=== PATIENT | male | born 1970 | race African-American/Black ===

== ENCOUNTER 2018-05-30 09:08 | Emergency (ER) | payer BC ==
[~2018-05-30] VITALS: Ht 185.4 cm; Wt 99.8 kg
[2018-05-30 09:13] VITALS: BP 142/91
[2018-05-30] MEDS ORDERED: PRED50TA PO (09:28)
[2018-05-30] MEDS ORDERED: DIPH25CA58 PO (09:28)
[2018-05-30] MEDS ORDERED: EPIPEN 2-P0.3 MG/0.3 IJ (09:28)
[2018-05-30] MEDS ORDERED: predniSONE 10 MG TABLET PO ONE (09:30)
[2018-05-30] MEDS ORDERED: diphenhydrAMINE HCL 25 MG CAPSULE PO ONE (09:30)
--- NOTE | 2018-05-30 09:36 | PHYS DOC ---
Adult General Chief Complaint Chief Complaint: ALLERGIC REACTION HPI HPI No other exacerbating or alleviating factors has not tried anything for relief Patient is a 48 year old Female presenting with rash and lip swelling occurred since last night no known trigger patient has a history of hypertension on lisinopril for the last 5 years also hydrochlorothiazide and metformin no recent new foods no exposures no new detergents no recent fever no shortness of breath no sore throat no pain Review of Systems Review of Systems Constitutional: Denies fever or chills [] Eyes: Denies change in visual acuity, redness, or eye pain [] Cardiovascular: No additional information not addressed in HPI [] Musculoskeletal: Denies back pain or joint pain [] Integument: All other systems were reviewed and found to be within normal limits, except as documented in this note. Current Medications Current Medications Current Medications Medications (Trade) Dose Ordered Sig/Tirso Start Time Stop Time Status Last Admin Dose Admin Diphenhydramine HCl (Benadryl) 50 mg 1X ONCE 05/30/18 09:30 05/30/18 09:31 Prednisone (Prednisone) 50 mg 1X ONCE 05/30/18 09:30 05/30/18 09:31 Allergies Allergies Allergies Coded Allergies Type Severity Reaction Last Updated Verified No Known Drug Allergies 05/30/18 No Physical Exam Physical Exam Constitutional: Well developed, well nourished, no acute distress, non-toxic appearance. [] HENT: Normocephalic, atraumatic, bilateral external ears normal, oropharynx moist, there is swelling noted to the right lower lip no segmental distribution is not the entire lip and tongue and posterior oropharynx are normal no stridor patient has no respiratory symptoms he says swallowing normally Eyes: PERRLA, EOMI, conjunctiva normal, no discharge. [] Neck: Normal range of motion, no tenderness, supple, no stridor. [] Cardiovascular:Heart rate regular rhythm, no murmur [] Lungs & Thorax: Bilateral breath sounds clear to auscultation []no wheezing Abdomen: Bowel sounds normal, soft, no tenderness, no masses, no pulsatile masses. [] Skin: Urticaria noted bilateral extremities also some swelling of the left hand Back: No tenderness, no CVA tenderness. [] Extremities: No tenderness, no cyanosis, no clubbing, ROM intact, no edema. [] Neurologic: Alert and oriented X 3, normal motor function, normal sensory function, no focal deficits noted. [] Psychologic: Affect normal, judgement normal, mood normal. [] EKG EKG [] Radiology/Procedures Radiology/Procedures [] Course & Med Decision Making Course & Med Decision Making Pertinent Labs and Imaging studies reviewed. (See chart for details) []Urticaria with some segmental swelling of the right lower lip no posterior oral pharyngeal swelling airways patent tachycardic lungs clear patient is stable appearing. Differential would include lisinopril-induced edema versus hives of unknown etiology. In presence of a significant urticaria seems to argue against lisinopril-induced angioedema but is possible patient was advised to stop lisinopril take prednisone and Benadryl he was given an EpiPen prescription out of an abundance of caution and instructed on how to use it strict return precautions were advised. Patient was able take oral pills in the emergency room without difficulty Dragon Disclaimer Dragon Disclaimer This electronic medical record was generated, in whole or in part, using a voice recognition dictation system. Departure Departure Impression: Primary Impression: Allergic reaction Disposition: HOME, SELF-CARE Condition: STABLE Patient Instructions: Hives Scripts Diphenhydramine Hcl (BENADRYL) 25 Mg Capsule 1 CAP PO QHS, #30 CAP 1 Refill Prov: CORY SEBASTIAN MD 05/30/18 Epinephrine (EPIPEN 2-MELA) 0.3 Mg/0.3 Ml Auto.injct 0.3 MG IJ 1X PRN for ANAPHYLAXIS, #1 SYR Prov: CORY SEBASTIAN MD 05/30/18 Prednisone (PREDNISONE) 50 Mg Tablet 1 TAB PO DAILY, #5 TAB Prov: CORY SEBASTIAN MD 05/30/18 CORY SEBASTIAN MD May 30, 2018 09:36
[2018-05-31] MEDS ORDERED: FAMO20TA5 PO (20:22)
== END 2018-05-30 09:54 | disposition home or self-care (01) ==
LOC: ER 09:08
DX: L50.0 Allergic urticaria (principal); R00.0 Tachycardia, unspecified; I10 Essential (primary) hypertension
CPT/HCPCS: 99283; J7512; Q0163

== ENCOUNTER 2018-05-31 18:29 | Emergency (ER) | payer BC ==
[~2018-05-31] VITALS: Ht 185.4 cm; Wt 99.8 kg
[~2018-05-31 18:29] MED LIST: DIPH25CA58 PO; EPIPEN 2-P0.3 MG/0.3 IJ; PRED50TA PO
[2018-05-31 18:44] VITALS: BP 156/104
[2018-05-31] MEDS ORDERED: diphenhydrAMINE HCL 25 MG CAPSULE PO ONE (19:00)
[2018-05-31] MEDS ORDERED: EPINEPHrine 1 MG/ML VIAL SQ ONE (19:00)
[2018-05-31] MEDS ORDERED: methylPREDNISolone SOD SUCC PF 125 MG/2 ML VIAL. IM ONE (19:00)
[2018-05-31] MEDS ORDERED: FAMOTIDINE 20 MG TABLET. PO ONE (19:00)
[2018-05-31] MEDS ORDERED: FAMO20TA5 PO (20:22)
--- NOTE | 2018-05-31 20:22 | PHYS DOC ---
Past Medical History Past Medical History: Diabetes-Type II, Hypertension Past Surgical History: Other Additional Past Surgical Histo: HIP REPLACEMENT LEFT AND RIGHT, L4L5, HERNIA Alcohol Use: Occasionally Drug Use: None Adult General Chief Complaint Chief Complaint: ALLERGIC REACTION HPI HPI Patient is a 48 year old male with history of hypertension, diabetes type 2, who presents today with a rash and facial swelling that began yesterday. He was on lisinopril until yesterday when he was seen in the ED and they discontinued it. He had been on lisinopril for 5 years. He was given prednisone and discharged with prednisone, Benadryl and an EpiPen. He has not used the EpiPen. He states the lip swelling has gone down but has changed from the right lower lip to the left lower lip, he is also complaining of a rash to bilateral upper extremities. He states he called his PCP who requested him to come to the ED to get a steroid shot and epinephrine. Patient has tried Benadryl with no relief. Patient denies any difficulty breathing. Denies any throat or tongue swelling. Review of Systems Review of Systems Constitutional: Denies fever or chills [] Eyes: Denies change in visual acuity, redness, or eye pain [] HENT: Reports Left lower lip swelling. Denies nasal congestion or sore throat [] Respiratory: Denies cough or shortness of breath [] Cardiovascular: No additional information not addressed in HPI [] GI: Denies abdominal pain, nausea, vomiting, bloody stools or diarrhea [] : Denies dysuria or hematuria [] Musculoskeletal: Denies back pain or joint pain [] Integument: Reports rash, denies skin lesions [] Neurologic: Denies headache, focal weakness or sensory changes [] All other systems were reviewed and found to be within normal limits, except as documented in this note. Current Medications Current Medications Current Medications Medications (Trade) Dose Ordered Sig/Tirso Start Time Stop Time Status Last Admin Dose Admin Diphenhydramine HCl (Benadryl) 25 mg 1X ONCE 05/31/18 19:00 05/31/18 19:04 DC 05/31/18 19:12 25 MG Epinephrine HCl (Adrenalin) 0.3 mg 1X ONCE 05/31/18 19:00 05/31/18 19:04 DC 05/31/18 19:12 0.3 MG Famotidine (Pepcid) 20 mg 1X ONCE 05/31/18 19:00 05/31/18 19:04 DC 05/31/18 19:11 20 MG Methylprednisolone Sodium Succinate (SOLU-Medrol 125MG VIAL) 125 mg 1X ONCE 05/31/18 19:00 05/31/18 19:04 DC 05/31/18 19:11 125 MG Allergies Allergies Allergies Coded Allergies Type Severity Reaction Last Updated Verified No Known Drug Allergies 05/30/18 No Physical Exam Physical Exam Constitutional: Well developed, well nourished, no acute distress, non-toxic appearance. [] HENT: Normocephalic, atraumatic, bilateral external ears normal, oropharynx moist, no oral exudates, nose normal. Airway is open, no throat or tongue swelling noted. Slight swelling noted on the left lower lip with no segmental distribution, no stridor. Eyes: PERRLA, EOMI, conjunctiva normal, no discharge. [] Neck: Normal range of motion, no tenderness, supple, no stridor. [] Cardiovascular:Heart rate regular rhythm, no murmur [] Lungs & Thorax: Bilateral breath sounds clear to auscultation [] Abdomen: Bowel sounds normal, soft, no tenderness, no masses, no pulsatile masses. [] Skin: Warm, dry, no erythema, no rash. [] Back: No tenderness, no CVA tenderness. [] Extremities: No tenderness, no cyanosis, no clubbing, ROM intact, no edema. [] Neurologic: Alert and oriented X 3, normal motor function, normal sensory function, no focal deficits noted. [] Psychologic: Affect normal, judgement normal, mood normal. [] Current Patient Data Vital Signs Vital Signs Date Time Temp Pulse Resp B/P (MAP) Pulse Ox O2 Delivery O2 Flow Rate FiO2 05/31/18 18:44 97.6 74 18 156/104 (121) 98 Room Air 97.6 EKG EKG [] Radiology/Procedures Radiology/Procedures [] Course & Med Decision Making Course & Med Decision Making Pertinent Labs and Imaging studies reviewed. (See chart for details) This is a 48-year-old male patient presenting to the ED today with lip swelling and a rash that began yesterday. He was seen in the ED yesterday, he was stopped from lisinopril. He was sent home with prednisone. He is also taking Benadryl. He states the swelling has gone down but is still present on the left lower lip as well as a rash to bilateral upper extremities. He was given epinephrine, Solu-Medrol Benadryl and Pepcid. He states itching has improved. Discharged with instructions to continue taking Benadryl, the prednisone he got yesterday, and Pepcid. He was also given a prescription for epinephrine which encouraged him to use if symptoms worsen. Follow-up with his PCP in the course of this week. Dragon Disclaimer Dragon Disclaimer This electronic medical record was generated, in whole or in part, using a voice recognition dictation system. Departure Departure Impression: Primary Impression: Allergic reaction Disposition: HOME, SELF-CARE Condition: STABLE Referrals: Aquiles SWAIN MD (PCP) Follow-up in the course of this week or next week Patient Instructions: Drug Allergy, [id number] Additional Instructions: You were evaluated in the emergency room for an allergic reaction. Please continue taking the prednisone will prescribed yesterday until completed. Take Pepcid every day until symptoms are gone, take Benadryl until symptoms are gone. You were given a prescription for EpiPen yesterday you can use it as needed for severe symptoms. Follow-up with your doctor in the course of this week or next week. Come back to the ED at any point symptoms worsen. Scripts Famotidine (FAMOTIDINE) 20 Mg Tablet 20 MG PO DAILY, #14 TAB Prov: MARCUS GIVENS APRN 05/31/18 Problem Qualifiers Primary Impression: Allergic reaction Encounter type: initial encounter Qualified Codes: T78.40XA - Allergy, unspecified, initial encounter MARCUS GIVENS APRN May 31, 2018 20:22
== END 2018-05-31 20:26 | disposition home or self-care (01) ==
LOC: ER 18:29
DX: T78.49XA Other allergy, initial encounter (principal); X58.XXXA Exposure to other specified factors, initial encounter; E11.9 Type 2 diabetes mellitus without complications; I10 Essential (primary) hypertension
CPT/HCPCS: 96372; 99283; J0171; J2930; Q0163